=== PATIENT | female | born 1980 | race Caucasian/White ===

== ENCOUNTER 2016-07-27 15:26 | Emergency (ER) | payer OTHER ==
[2016-07-27 16:40] LABS: BASOPHIL 0.8 % (0-2); EOSINOPHIL 0 % (0-5); HCT 43.6 % (37.0-47.0); HGB 15.2 g/dl (12.5-16.0); LYMPHOCYTE 17.1 % (15-48); MCHC 34.9 g/dL (32.0-36.0); MONOCYTE 9.8 % (0-12); NEUTROPHIL 72.3 % (41-80); PLT 101 K/uL (150-400); RDW 13.2 % (11.5-14.0); WBC 2.5 K/uL (4.0-10.5)
[2016-07-27 16:51] LABS: ALBUMIN 4.3 g/dL (3.5-5.0); BILIRUBIN - TOTAL 0.3 mg/dL (0.1-1.0); CREATININE 0.9 mg/dL (0.5-1.0); GLOBULIN (CALCULATION) 2.3 g/dL (2.2-4.2); TOTAL PROTEIN 6.6 g/dL (6.4-8.3)
[2016-07-27 16:55] LABS: BILIRUBIN NEGATIVE (NEGATIVE); BLOOD NEGATIVE Ery/uL (NEGATIVE); CLARITY CLEAR (CLEAR); COLOR YELLOW (YELLOW); GLUCOSE (U) NORMAL (NORMAL); KETONE (U) NEGATIVE (NEGATIVE); LEUKOCYTES NEGATIVE Leu/uL (NEGATIVE); NITRITE NEGATIVE (NEGATIVE); PROTEIN NEGATIVE (NEGATIVE); SPECIFIC GRAVITY 1.015 (1.001-1.030); pH 7.5 (5.0-9.0)
[2016-07-27 17:15] LABS: AMPHETAMINES NEGATIVE (NEGATIVE); BARBITURATES NEGATIVE (NEGATIVE); BENZODIAZEPINES NEGATIVE (NEGATIVE); COCAINE NEGATIVE (NEGATIVE); MARIJUANA (THC) NEGATIVE (NEGATIVE); METHADONE NEGATIVE (NEGATIVE); TRICYCLIC ANTIDEPRESSANT NEGATIVE (NEGATIVE)
[2016-07-27 17:51] LABS: BASOPHIL 1.6 % (0-2); EOSINOPHIL 0.3 % (0-5); HCT 44.9 % (37.0-47.0); HGB 15.6 g/dl (12.5-16.0); LYMPHOCYTE 20.3 % (15-48); MCHC 34.7 g/dL (32.0-36.0); MCV 89.1 fL (78.0-100.0); MONOCYTE 9.3 % (0-12); MPV 11.9 fL (6.0-9.5); NEUTROPHIL 68.5 % (41-80); PLT 107 K/uL (150-400); RBC 5.04 M/uL (4.20-5.40); RDW 13.4 % (11.5-14.0); WBC 3.6 K/uL (4.0-10.5)
== END 2016-07-27 19:56 | disposition home or self-care (01) ==
LOC: FER 15:26
PROVIDERS: Nurse Practitioner
DX: R51 Headache (principal); M54.9 Dorsalgia, unspecified; M25.552 Pain in left hip; M25.551 Pain in right hip; R50.9 Fever, unspecified; R11.0 Nausea; K21.9 Gastro-esophageal reflux disease without esophagitis; F17.210 Nicotine dependence, cigarettes, uncomplicated; Z88.8 Allergy status to other drugs, medicaments and biological substances; Z79.899 Other long term (current) drug therapy
CPT/HCPCS: 36415; 80053; 80305; 81003; 85025; 86308; 87339; 87450; 87804; 87899

== ENCOUNTER 2020-11-11 07:43 | Emergency (ER) | payer OTHER ==
[~2020-11-11] VITALS: Ht 175.3 cm; Wt 59.0 kg
[~2020-11-11 07:43] MED LIST: FLEXERIL10 MG PO; IBU800 MG PO; KETOROLAC TROME10 MG PO; MEDROL 4MG DOSEP4 MG PO; PRILOSEC20 MG PO; VOLTAREN **OUT75 MG PO; ZOLOFT100 MG PO; ZPAK PO
[2020-11-11] MEDS ORDERED: CYCLOBENZAPRINE10 MG PO (09:30)
[2020-11-11] MEDS ORDERED: NAPROXEN500 MG PO (09:30)
== END 2020-11-11 09:35 | disposition home or self-care (01) ==
LOC: FER 07:43
DX: S29.011A Strain of muscle and tendon of front wall of thorax, initial encounter (principal); Z88.8 Allergy status to other drugs, medicaments and biological substances; F17.210 Nicotine dependence, cigarettes, uncomplicated; W22.8XXA Striking against or struck by other objects, initial encounter
CPT/HCPCS: 71101